=== PATIENT | female | born 1955 | race Caucasian/White ===

== ENCOUNTER 2017-03-15 06:29 | Day surgery (SDC) | payer OTHER ==
[~2017-03-15] VITALS: Ht 172.7 cm; Wt 98.5 kg
[~2017-03-15 06:29] MED LIST: ASPIR 8181 M1 PO; CALCIUM 600 +1 EAC1 PO; CHOLESTEROL MED; CLARITIN,ALAVAR10 MG PO; DAILY VITE1 EAC1 PO; ENDOCET 5-3251 EACH PO; FLONASE ALLERG9.9 ML BOTH NARES; HIGH BLOOD PRESSURE; HYDROCHLOROTH12.5 M3 PO; HYDROCODON-ACE1 EAC7 PO; LISINOPRIL-HCT1 EAC3 PO; LISINOPRIL20 MG PO; MOTRIN400 MG PO; MOTRIN600 MG PO; MULTI COMPLETE1 EACH PO; NORCO 5/3251 TABLET PO; NORVASC10 MG PO; PERCOCET 5/31 TABLET PO; PRAVACHOL20 MG PO; PRAVACHOL40 MG PO; PRAVASTATIN SOD40 MG PO; TENORMIN100 MG PO; ULTRACET1 TABLET PO; VITAMIN C500 M1 PO; ZOFRAN4 MG PO
[2017-03-15 06:51] VITALS: BP 126/90
[2017-03-15 15:41] VITALS: BP 144/96
[2017-03-15 19:30] VITALS: BP 126/79
[2017-03-16 00:28] VITALS: BP 126/75
[2017-03-16 03:08] VITALS: BP 126/64
[2017-03-16 07:12] LABS: HEMATOCRIT 37.3 % (36.0-46.0); MCH 29.1 PG (29.0-34.0); MCV 88.2 FL (83-99); MEAN PLAT.VOLUME 9.8 uM^3 (9.5-12.4); PLATELET COUNT 184 K/uL (156-360); RBC DIS.WIDTH-CV 12.9 % (11.8-14.6); RBC DIS.WIDTH-SD 42.1 % (39-53); RED BLOOD COUNT 4.23 M/uL (3.80-5.20)
[2017-03-16 07:13] LABS: WHITE BLOOD COUNT 7.9 K/uL (4.1-10.2)
[2017-03-16 08:04] VITALS: BP 126/65
[2017-03-16 08:19] LABS: CHLORIDE 105 mEq/L (99-109); POTASSIUM 4.2 mEq/L (3.7-5.4); SODIUM 137 mEq/L (136-147)
[2017-03-16 08:21] LABS: GLUCOSE 95 mg/dL (70-99)
[2017-03-16 08:22] LABS: ANION GAP 7 MEQ/L (2-14)
[2017-03-16 08:25] LABS: GFR ESTIMATE (CALCULATED) 54 mL/min/
[2017-03-16 08:26] LABS: UREA NITROGEN (BUN) 20 mg/dL (9-23)
[2017-03-16 11:05] VITALS: BP 119/71
[2017-03-16] MEDS ORDERED: COLACE100 MG PO (15:20)
[2017-03-16] MEDS ORDERED: PERCOCET 5/31 TABLET PO (15:20)
[2017-03-16] MEDS ORDERED: OXYCONTIN10 MG PO (15:20)
== END 2017-03-16 17:00 | disposition home or self-care (01) ==
LOC: SDC 06:29 → 2EAST 11:49 → 2SOUTH 11:49 → SDC 12:10 → 2EAST 14:54
PROVIDERS: Surgery
DX: K43.2 Incisional hernia without obstruction or gangrene (principal); I10 Essential (primary) hypertension; M19.90 Unspecified osteoarthritis, unspecified site; Z87.891 Personal history of nicotine dependence; Z79.82 Long term (current) use of aspirin
CPT/HCPCS: 80048; 85027; 88302; C1781; G0378; J0690; J1170; J1650; J2405; J2765; J3010; J7120

== ENCOUNTER 2018-03-20 17:07 | Emergency (ER) | payer OTHER ==
[~2018-03-20] VITALS: Ht 172.7 cm; Wt 85.3 kg
[~2018-03-20 17:07] MED LIST changes: +COLACE100 MG PO; +OXYCONTIN10 MG PO
[2018-03-20 22:56] LABS: HEMATOCRIT 39.4 % (36.0-46.0); HEMOGLOBIN 13.4 G/DL (11.9-15.5); MCV 88.3 FL (83-99); PLATELET COUNT 205 K/uL (156-360); RBC DIS.WIDTH-CV 12.5 % (11.8-14.6); RBC DIS.WIDTH-SD 40.4 % (39-53); RED BLOOD COUNT 4.46 M/uL (3.80-5.20); WHITE BLOOD COUNT 5.5 K/uL (4.1-10.2)
[2018-03-20 23:09] LABS: ALBUMIN 4.3 g/dL (3.2-4.8); CHLORIDE 106 mEq/L (99-109); POTASSIUM 4.2 mEq/L (3.7-5.4); SODIUM 142 mEq/L (136-147)
[2018-03-20 23:11] LABS: GLUCOSE 101 mg/dL (70-99)
[2018-03-20 23:12] LABS: TOTAL PROTEIN 7.2 g/dL (6.4-8.3)
[2018-03-20 23:13] LABS: TOTAL BILIRUBIN 0.5 mg/dL (0.0-1.0)
[2018-03-20 23:15] LABS: ALKALINE PHOSPHATASE 63 IU/L (3-129); CREATININE 1.2 mg/dL (0.6-1.3); GFR ESTIMATE (CALCULATED) 49 mL/min/
[2018-03-20 23:16] LABS: UREA NITROGEN (BUN) 25 mg/dL (9-23)
[2018-03-20 23:17] LABS: AST (GOT) 24 IU/L (2-34); TROP-I INTERPRETATION NEGATIVE; TROPONIN-I < 0.01 ng/mL (0.0-0.30)
[2018-03-20 23:18] LABS: ALT (GPT) 16 IU/L (3-49)
[2018-03-20] MEDS ORDERED: SKELAXIN800 MG PO (23:42)
[2018-03-20] MEDS ORDERED: TRAMADOL HCL50 MG PO (23:42)
[2018-03-21] VITALS: BP 139/95
== END 2018-03-21 00:05 | disposition home or self-care (01) ==
LOC: EME 17:07
PROVIDERS: Physician Assistant
DX: M54.2 Cervicalgia (principal); Z90.710 Acquired absence of both cervix and uterus
CPT/HCPCS: 71046; 80053; 84484; 85027; 93005; 99281; 99284; J1885